=== PATIENT | male | born 1955 | race Caucasian/White ===

== ENCOUNTER 2018-08-13 21:17 | Inpatient (IN) | payer OTHER ==
[~2018-08-13] VITALS: Ht 172.7 cm; Wt 84.6 kg
[2018-08-13 21:54] VITALS: Ht 172.7 cm; Wt 84.6 kg
[2018-08-13 22:56] LABS: BASOPHIL % 1.1 % (0-2); PLATELET COUNT 298 x10^3mcL (130-400); RED CELL DISTRIBUTION WIDTH 13.5 % (11.5-14.5)
[2018-08-13 23:08] LABS: CARBON DIOXIDE 24.1 mmol/L (21-32); CHLORIDE SERUM 101 mmol/L (98-107); GFR1 > 60 mL/min; GLUCOSE SERUM 167 mg/dL (74-106); POTASSIUM SERUM 4.1 mmol/L (3.5-5.1); SODIUM SERUM 133 mmol/L (136-145)
[2018-08-13 23:13] LABS: ALBUMIN 3.5 g/dL (3.4-5.0); ALKALINE PHOSPHATASE 81 U/L (46-116); ALT/SGPT 26 U/L (16-63); AST/SGOT 18 U/L (15-37); BILIRUBIN TOTAL 0.4 mg/dL (0.20-1.00); C REACTIVE PROTEIN 5.1 mg/dL (<=0.9)
[2018-08-13 23:42] LABS: ERYTHROCYTE SED RATE 64 mm/hr (0-20)
[2018-08-14 00:52] LABS: MAGNESIUM 1.8 mg/dL (1.8-2.4); PHOSPHOROUS 2.8 mg/dL (2.5-4.9)
[2018-08-14 02:38] VITALS: BP 143/68
[2018-08-14 05:30] VITALS: BP 137/68
[2018-08-14 06:59] LABS: CALCIUM 7.8 mg/dL (8.5-10.1); CARBON DIOXIDE 25.3 mmol/L (21-32); CHLORIDE SERUM 107 mmol/L (98-107); CREATININE SERUM 0.9 mg/dL (0.7-1.3); GFR1 > 60 mL/min; GLUCOSE SERUM 95 mg/dL (74-106); POTASSIUM SERUM 4.1 mmol/L (3.5-5.1); SODIUM SERUM 140 mmol/L (136-145)
[2018-08-14 07:43] LABS: BASOPHIL % 0.2 % (0-2); PLATELET COUNT 244 x10^3mcL (130-400); RED CELL DISTRIBUTION WIDTH 13.2 % (11.5-14.5)
[2018-08-14 09:32] VITALS: BP 120/60
[2018-08-14 10:12] LABS: microscopic required? NO
[2018-08-14 10:21] LABS: urine erythrocyte NEGATIVE (NEGATIVE)
[2018-08-14 11:48] LABS: AMPHETAMINE QUAL UR NONE DETECTED (See below)
[2018-08-14 16:59] VITALS: BP 120/64
[2018-08-14 20:56] VITALS: BP 129/60
[2018-08-15 06:28] VITALS: BP 133/64
[2018-08-15 08:03] LABS: CALCIUM 8.8 mg/dL (8.5-10.1); CARBON DIOXIDE 26.4 mmol/L (21-32); CHLORIDE SERUM 104 mmol/L (98-107); CREATININE SERUM 0.9 mg/dL (0.7-1.3); GFR1 > 60 mL/min; GLUCOSE SERUM 93 mg/dL (74-106); PHOSPHOROUS 2.7 mg/dL (2.5-4.9); SODIUM SERUM 138 mmol/L (136-145)
[2018-08-15 08:18] LABS: BASOPHIL % 0.4 % (0-2); PLATELET COUNT 251 x10^3mcL (130-400); RED CELL DISTRIBUTION WIDTH 13.4 % (11.5-14.5)
[2018-08-15 09:04] VITALS: BP 143/60
[2018-08-15 16:47] VITALS: BP 168/64
[2018-08-15 17:57] VITALS: BP 154/78
[2018-08-15 20:56] VITALS: BP 122/55
[2018-08-16 05:48] VITALS: BP 136/64
[2018-08-16 06:12] LABS: BASOPHIL % 0.3 % (0-2); PLATELET COUNT 242 x10^3mcL (130-400); RED CELL DISTRIBUTION WIDTH 13.3 % (11.5-14.5)
[2018-08-16 06:31] LABS: CALCIUM 8.8 mg/dL (8.5-10.1); CARBON DIOXIDE 24.5 mmol/L (21-32); CHLORIDE SERUM 105 mmol/L (98-107); CREATININE SERUM 0.9 mg/dL (0.7-1.3); GFR1 > 60 mL/min; GLUCOSE SERUM 95 mg/dL (74-106); POTASSIUM SERUM 3.9 mmol/L (3.5-5.1); SODIUM SERUM 139 mmol/L (136-145)
[2018-08-16 07:55] VITALS: BP 149/76
[2018-08-16 10:14] LABS: CHOLESTEROL/HDL RATIO 3.9
[2018-08-16 17:36] VITALS: BP 118/79
[2018-08-16 21:10] VITALS: BP 110/49
[2018-08-17 05:01] VITALS: BP 141/59
[2018-08-17 06:53] LABS: BASOPHIL % 0.8 % (0-2); PLATELET COUNT 244 x10^3mcL (130-400); RED CELL DISTRIBUTION WIDTH 13.3 % (11.5-14.5)
[2018-08-17 07:01] LABS: CALCIUM 8.7 mg/dL (8.5-10.1); CARBON DIOXIDE 28.4 mmol/L (21-32); CHLORIDE SERUM 106 mmol/L (98-107); CREATININE SERUM 0.9 mg/dL (0.7-1.3); GFR1 > 60 mL/min; GLUCOSE SERUM 91 mg/dL (74-106); MAGNESIUM 1.7 mg/dL (1.8-2.4); PHOSPHOROUS 3.3 mg/dL (2.5-4.9); POTASSIUM SERUM 4.1 mmol/L (3.5-5.1); SODIUM SERUM 140 mmol/L (136-145)
[2018-08-17 09:51] VITALS: BP 143/75
[2018-08-17 17:30] VITALS: BP 140/534
[2018-08-17 21:10] VITALS: BP 145/81
[2018-08-18 05:21] VITALS: BP 130/70
[2018-08-18 07:11] LABS: CALCIUM 8.5 mg/dL (8.5-10.1); CHLORIDE SERUM 105 mmol/L (98-107); CREATININE SERUM 0.8 mg/dL (0.7-1.3); GFR1 > 60 mL/min; GLUCOSE SERUM 93 mg/dL (74-106); POTASSIUM SERUM 3.7 mmol/L (3.5-5.1); SODIUM SERUM 141 mmol/L (136-145)
[2018-08-18 07:34] LABS: BASOPHIL % 0.5 % (0-2); PLATELET COUNT 233 x10^3mcL (130-400); RED CELL DISTRIBUTION WIDTH 13.4 % (11.5-14.5)
[2018-08-18 09:33] VITALS: BP 142/56
[2018-08-18 17:05] VITALS: BP 116/77
[2018-08-18 21:35] VITALS: BP 164/74
[2018-08-18 22:30] VITALS: BP 148/62
[2018-08-19 05:36] VITALS: BP 144/63
[2018-08-19 06:53] LABS: BASOPHIL % 0.3 % (0-2); PLATELET COUNT 222 x10^3mcL (130-400); RED CELL DISTRIBUTION WIDTH 13.5 % (11.5-14.5)
[2018-08-19 07:04] LABS: CALCIUM 8.6 mg/dL (8.5-10.1); CARBON DIOXIDE 26.5 mmol/L (21-32); CHLORIDE SERUM 105 mmol/L (98-107); CREATININE SERUM 0.8 mg/dL (0.7-1.3); GFR1 > 60 mL/min; GLUCOSE SERUM 99 mg/dL (74-106); PHOSPHOROUS 3.4 mg/dL (2.5-4.9); POTASSIUM SERUM 3.8 mmol/L (3.5-5.1); SODIUM SERUM 140 mmol/L (136-145)
[2018-08-19 09:53] VITALS: BP 130/61
[2018-08-19 16:33] VITALS: BP 168/75
[2018-08-19 18:09] VITALS: BP 130/71
[2018-08-19 21:06] VITALS: BP 128/60
[2018-08-20 06:05] VITALS: BP 142/70
[2018-08-20 06:55] LABS: BASOPHIL % 0.5 % (0-2); PLATELET COUNT 246 x10^3mcL (130-400); RED CELL DISTRIBUTION WIDTH 12.2 % (11.5-14.5)
[2018-08-20 06:59] LABS: CALCIUM 8.8 mg/dL (8.5-10.1); CARBON DIOXIDE 25.8 mmol/L (21-32); CHLORIDE SERUM 104 mmol/L (98-107); CREATININE SERUM 0.8 mg/dL (0.7-1.3); GFR1 > 60 mL/min; GLUCOSE SERUM 97 mg/dL (74-106); POTASSIUM SERUM 3.8 mmol/L (3.5-5.1); SODIUM SERUM 140 mmol/L (136-145)
[2018-08-20 09:20] VITALS: BP 136/69
[2018-08-20 16:31] VITALS: BP 125/76
[2018-08-20 22:10] VITALS: BP 120/75
[2018-08-21 05:42] VITALS: BP 157/57
[2018-08-21 06:28] LABS: BASOPHIL % 0.7 % (0-2); PLATELET COUNT 246 x10^3mcL (130-400); RED CELL DISTRIBUTION WIDTH 12.5 % (11.5-14.5)
[2018-08-21 06:53] LABS: CALCIUM 8.8 mg/dL (8.5-10.1); CARBON DIOXIDE 24.4 mmol/L (21-32); CHLORIDE SERUM 100 mmol/L (98-107); CREATININE SERUM 0.8 mg/dL (0.7-1.3); GFR1 > 60 mL/min; GLUCOSE SERUM 93 mg/dL (74-106); POTASSIUM SERUM 3.7 mmol/L (3.5-5.1); SODIUM SERUM 133 mmol/L (136-145)
[2018-08-21 21:20] VITALS: BP 139/73
[2018-08-22 05:48] VITALS: BP 135/80
[2018-08-22 07:36] LABS: CALCIUM 8.6 mg/dL (8.5-10.1); CARBON DIOXIDE 24.9 mmol/L (21-32); CHLORIDE SERUM 102 mmol/L (98-107); CREATININE SERUM 0.8 mg/dL (0.7-1.3); GFR1 > 60 mL/min; GLUCOSE SERUM 111 mg/dL (74-106); POTASSIUM SERUM 3.7 mmol/L (3.5-5.1); SODIUM SERUM 138 mmol/L (136-145)
[2018-08-22 08:36] LABS: BASOPHIL % 0.4 % (0-2); PLATELET COUNT 151 x10^3mcL (130-400); RED CELL DISTRIBUTION WIDTH 12.6 % (11.5-14.5)
[2018-08-22 09:48] VITALS: BP 134/69
[2018-08-22] MEDS ORDERED: LAC PO (16:16)
[2018-08-22] MEDS ORDERED: LEVOFLOXACIN750 M1 PO (16:17)
[2018-08-22] MEDS ORDERED: CLINDAMYCIN HC300 MG PO (16:18)
[2018-08-22] MEDS ORDERED: ACETAMINOPHEN-H1 TA1 PO (16:21)
[2018-08-22 18:17] VITALS: BP 125/70
[2018-08-22] MEDS ORDERED: ASPIR 8181 MG PO (19:12)
[2018-08-22] MEDS ORDERED: PLA75 PO (19:24)
== END 2018-08-22 19:41 | disposition home or self-care (01) | DRG 710 ==
LOC: ED 21:17 → MU 08-14 00:29
PROVIDERS: Emergency Medicine; Internal Medicine; Surgery; ADMIT General Practice
PROC: B41D1ZZ Fluoroscopy of Aorta and Bilateral Lower Extremity Arteries using Low Osmolar Contrast (ICD-10-PCS; principal; 2018-08-16 13:00)
PROC: 03150J8 Bypass Right Axillary Artery to Bilateral Upper Leg Artery with Synthetic Substitute, Open Approach (ICD-10-PCS; 2018-08-21)
DX: A41.9 Sepsis, unspecified organism (principal); I96 Gangrene, not elsewhere classified; E11.621 Type 2 diabetes mellitus with foot ulcer; E87.1 Hypo-osmolality and hyponatremia; L03.115 Cellulitis of right lower limb; L97.519 Non-pressure chronic ulcer of other part of right foot with unspecified severity; E11.52 Type 2 diabetes mellitus with diabetic peripheral angiopathy with gangrene; I87.2 Venous insufficiency (chronic) (peripheral); I10 Essential (primary) hypertension; K21.9 Gastro-esophageal reflux disease without esophagitis; F17.210 Nicotine dependence, cigarettes, uncomplicated; M21.612 Bunion of left foot; M21.611 Bunion of right foot; Z79.84 Long term (current) use of oral hypoglycemic drugs
CPT/HCPCS: 82962; 83880; C1760; C1769; C1887; C1894; J0690; J1170; J1200; J1644; J1885; J2001; J2250; J2270; J2543; J3010; J3370; J3490; J7030; J7040; Q0092; Q9967

== ENCOUNTER 2018-10-06 20:08 | Emergency (ER) | payer OTHER ==
[~2018-10-06] VITALS: Ht 172.7 cm; Wt 83.0 kg
[~2018-10-06 20:08] MED LIST: ACETAMINOPHEN-H1 TA1 PO; ASPIR 8181 MG PO; CLINDAMYCIN HC300 MG PO; LAC PO; LEVOFLOXACIN750 M1 PO; PLA75 PO
[2018-10-06 21:17] VITALS: Ht 172.7 cm; Wt 83.0 kg
[2018-10-06 22:34] VITALS: BP 145/90
== END 2018-10-06 22:34 | disposition home or self-care (01) ==
LOC: ED 20:08
DX: I96 Gangrene, not elsewhere classified (principal); G89.29 Other chronic pain; M79.674 Pain in right toe(s)

== ENCOUNTER 2018-10-13 15:47 | Inpatient (IN) | payer OTHER ==
[~2018-10-13] VITALS: Ht 170.2 cm; Wt 80.0 kg
[2018-10-13 16:12] VITALS: Ht 170.2 cm; Wt 80.0 kg
[2018-10-13 19:09] LABS: BASOPHIL % 0.4 % (0-2); PLATELET COUNT 158 x10^3mcL (130-400); RED CELL DISTRIBUTION WIDTH 13.8 % (11.5-14.5)
[2018-10-13 19:23] LABS: CALCIUM 9.2 mg/dL (8.5-10.1); CARBON DIOXIDE 29.4 mmol/L (21-32); CHLORIDE SERUM 100 mmol/L (98-107); CREATININE SERUM 0.7 mg/dL (0.7-1.3); GFR1 > 60 mL/min; GLUCOSE SERUM 107 mg/dL (74-106); POTASSIUM SERUM 3.9 mmol/L (3.5-5.1); SODIUM SERUM 138 mmol/L (136-145)
[2018-10-13 19:27] LABS: ALBUMIN 4.2 g/dL (3.4-5.0); ALKALINE PHOSPHATASE 86 U/L (46-116); ALT/SGPT 35 U/L (16-63); AST/SGOT 20 U/L (15-37); BILIRUBIN TOTAL 0.6 mg/dL (0.20-1.00)
[2018-10-13 19:56] LABS: ERYTHROCYTE SED RATE 45 mm/hr (0-20)
[2018-10-13 20:49] LABS: microscopic required? NO
[2018-10-13 20:58] LABS: UA SPECIFIC GRAVITY >=1.030 (1.005-1.035); urine erythrocyte NEGATIVE (NEGATIVE)
[2018-10-13 21:23] LABS: CHOLESTEROL/HDL RATIO 4.3; MAGNESIUM 2.1 mg/dL (1.8-2.4); PHOSPHOROUS 3.8 mg/dL (2.5-4.9)
[2018-10-13 21:31] LABS: FREE T4 1.14 ng/dL (0.76-1.46); FREE THYROXINE INDEX 3.6 ug/dL (1.4-4.5); T4(THYROXINE) 11.1 ug/dL (4.7-13.3)
[2018-10-13 21:32] LABS: T3 TOTAL 1.61 ng/mL
[2018-10-13 21:50] VITALS: BP 142/74
[2018-10-14 05:53] VITALS: BP 124/67
[2018-10-14 08:13] VITALS: BP 127/70
[2018-10-14 12:16] VITALS: BP 126/67
[2018-10-14 16:43] VITALS: BP 110/59; BP 140/69
[2018-10-14 20:14] VITALS: BP 130/64
[2018-10-15 05:00] VITALS: BP 114/70
[2018-10-15 07:47] VITALS: BP 123/66
[2018-10-15 11:50] VITALS: BP 138/71
[2018-10-15 16:40] VITALS: BP 155/72
[2018-10-15 19:55] VITALS: BP 142/69
[2018-10-16 04:10] VITALS: BP 142/69
[2018-10-16 06:46] LABS: BASOPHIL % 0.5 % (0-2); PLATELET COUNT 169 x10^3mcL (130-400); RED CELL DISTRIBUTION WIDTH 13.7 % (11.5-14.5)
[2018-10-16 07:22] LABS: CALCIUM 8.2 mg/dL (8.5-10.1); CARBON DIOXIDE 27.7 mmol/L (21-32); CHLORIDE SERUM 106 mmol/L (98-107); CREATININE SERUM 0.6 mg/dL (0.7-1.3); GFR1 > 60 mL/min; GLUCOSE SERUM 94 mg/dL (74-106); POTASSIUM SERUM 3.9 mmol/L (3.5-5.1); SODIUM SERUM 140 mmol/L (136-145)
[2018-10-16 09:10] VITALS: BP 139/69
[2018-10-16 12:34] VITALS: BP 145/80
[2018-10-16 17:35] VITALS: BP 137/75
[2018-10-16 21:10] VITALS: BP 144/75
[2018-10-17 05:42] VITALS: BP 132/69
[2018-10-17 07:43] VITALS: BP 136/86
[2018-10-17 17:45] VITALS: BP 154/85
[2018-10-17 21:07] VITALS: BP 137/85
[2018-10-18 05:56] VITALS: BP 146/63
[2018-10-18 06:36] LABS: CALCIUM 8.6 mg/dL (8.5-10.1); CARBON DIOXIDE 28.9 mmol/L (21-32); CHLORIDE SERUM 106 mmol/L (98-107); CREATININE SERUM 0.7 mg/dL (0.7-1.3); GFR1 > 60 mL/min; GLUCOSE SERUM 92 mg/dL (74-106); POTASSIUM SERUM 4.3 mmol/L (3.5-5.1); SODIUM SERUM 142 mmol/L (136-145)
[2018-10-18 07:58] VITALS: BP 126/71
[2018-10-18 08:18] LABS: BASOPHIL % 0.4 % (0-2); PLATELET COUNT 176 x10^3mcL (130-400); RED CELL DISTRIBUTION WIDTH 13.4 % (11.5-14.5)
[2018-10-18 12:10] VITALS: BP 131/66
[2018-10-18 16:38] VITALS: BP 153/69; BP 168/85
[2018-10-18 21:40] VITALS: BP 135/65
[2018-10-19 05:33] VITALS: BP 129/57
[2018-10-19 06:28] LABS: BASOPHIL % 0.6 % (0-2); PLATELET COUNT 174 x10^3mcL (130-400); RED CELL DISTRIBUTION WIDTH 13.4 % (11.5-14.5)
[2018-10-19 06:37] LABS: CALCIUM 8.2 mg/dL (8.5-10.1); CARBON DIOXIDE 26.6 mmol/L (21-32); CHLORIDE SERUM 107 mmol/L (98-107); CREATININE SERUM 0.7 mg/dL (0.7-1.3); GFR1 > 60 mL/min; GLUCOSE SERUM 85 mg/dL (74-106); SODIUM SERUM 141 mmol/L (136-145)
[2018-10-19 08:47] VITALS: BP 138/69
[2018-10-19 12:02] VITALS: BP 139/79
[2018-10-19 17:16] VITALS: BP 140/71
[2018-10-19 21:59] VITALS: BP 152/70
[2018-10-20 05:51] VITALS: BP 123/69
[2018-10-20 07:29] LABS: CALCIUM 8.1 mg/dL (8.5-10.1); CARBON DIOXIDE 26.9 mmol/L (21-32); CHLORIDE SERUM 107 mmol/L (98-107); CREATININE SERUM 0.7 mg/dL (0.7-1.3); GFR1 > 60 mL/min; GLUCOSE SERUM 85 mg/dL (74-106); POTASSIUM SERUM 3.9 mmol/L (3.5-5.1); SODIUM SERUM 142 mmol/L (136-145)
[2018-10-20 07:41] LABS: BASOPHIL % 0.5 % (0-2); PLATELET COUNT 187 x10^3mcL (130-400); RED CELL DISTRIBUTION WIDTH 13.6 % (11.5-14.5)
[2018-10-20 11:01] VITALS: BP 135/76
[2018-10-20 14:08] VITALS: BP 157/78
[2018-10-20 18:07] VITALS: BP 134/65
[2018-10-20 22:10] VITALS: BP 124/51
[2018-10-21 05:29] VITALS: BP 124/57
[2018-10-21 07:04] LABS: CALCIUM 8.1 mg/dL (8.5-10.1); CHLORIDE SERUM 105 mmol/L (98-107); CREATININE SERUM 0.7 mg/dL (0.7-1.3); GFR1 > 60 mL/min; GLUCOSE SERUM 89 mg/dL (74-106); SODIUM SERUM 140 mmol/L (136-145)
[2018-10-21 07:13] LABS: BASOPHIL % 0.5 % (0-2); PLATELET COUNT 201 x10^3mcL (130-400); RED CELL DISTRIBUTION WIDTH 13.1 % (11.5-14.5)
[2018-10-21 08:25] VITALS: BP 122/57
[2018-10-21 16:45] VITALS: BP 139/62
[2018-10-21 21:14] VITALS: BP 140/68
[2018-10-22 05:34] VITALS: BP 146/71
[2018-10-22 06:49] LABS: CALCIUM 8.1 mg/dL (8.5-10.1); CARBON DIOXIDE 26.7 mmol/L (21-32); CHLORIDE SERUM 107 mmol/L (98-107); CREATININE SERUM 0.7 mg/dL (0.7-1.3); GFR1 > 60 mL/min; GLUCOSE SERUM 93 mg/dL (74-106); SODIUM SERUM 140 mmol/L (136-145)
[2018-10-22 07:15] LABS: BASOPHIL % 0.5 % (0-2); PLATELET COUNT 201 x10^3mcL (130-400); RED CELL DISTRIBUTION WIDTH 13.3 % (11.5-14.5)
[2018-10-22 09:24] VITALS: BP 129/72; BP 162/90
[2018-10-22 17:04] VITALS: BP 140/68
[2018-10-22 20:49] VITALS: BP 136/65
[2018-10-23 05:35] VITALS: BP 145/70
[2018-10-23 06:52] LABS: BASOPHIL % 0.5 % (0-2); PLATELET COUNT 210 x10^3mcL (130-400); RED CELL DISTRIBUTION WIDTH 13.5 % (11.5-14.5)
[2018-10-23 07:07] LABS: CALCIUM 8.2 mg/dL (8.5-10.1); CARBON DIOXIDE 26.4 mmol/L (21-32); CHLORIDE SERUM 108 mmol/L (98-107); CREATININE SERUM 0.7 mg/dL (0.7-1.3); GFR1 > 60 mL/min; GLUCOSE SERUM 88 mg/dL (74-106); MAGNESIUM 1.8 mg/dL (1.8-2.4); PHOSPHOROUS 3.1 mg/dL (2.5-4.9); POTASSIUM SERUM 3.9 mmol/L (3.5-5.1); SODIUM SERUM 140 mmol/L (136-145)
[2018-10-23 08:00] VITALS: BP 142/78
[2018-10-23 10:40] VITALS: BP 129/71
[2018-10-23 11:56] VITALS: BP 141/74
[2018-10-23 16:38] VITALS: BP 140/70
[2018-10-23 20:18] VITALS: BP 138/62
[2018-10-24 04:28] VITALS: BP 124/62
[2018-10-24 07:19] LABS: CALCIUM 8.1 mg/dL (8.5-10.1); CARBON DIOXIDE 25.8 mmol/L (21-32); CHLORIDE SERUM 108 mmol/L (98-107); CREATININE SERUM 0.7 mg/dL (0.7-1.3); GFR1 > 60 mL/min; GLUCOSE SERUM 103 mg/dL (74-106); POTASSIUM SERUM 4.2 mmol/L (3.5-5.1); SODIUM SERUM 141 mmol/L (136-145)
[2018-10-24 07:23] LABS: BASOPHIL % 0.2 % (0-2); PLATELET COUNT 231 x10^3mcL (130-400); RED CELL DISTRIBUTION WIDTH 13.6 % (11.5-14.5)
[2018-10-24 09:25] VITALS: BP 124/59
[2018-10-24 18:25] VITALS: BP 133/67
[2018-10-24 20:10] VITALS: BP 130/58
[2018-10-25 05:04] VITALS: BP 142/64
[2018-10-25 06:38] LABS: BASOPHIL % 0.7 % (0-2); PLATELET COUNT 229 x10^3mcL (130-400); RED CELL DISTRIBUTION WIDTH 13.5 % (11.5-14.5)
[2018-10-25 06:40] LABS: CALCIUM 8.1 mg/dL (8.5-10.1); CARBON DIOXIDE 26.9 mmol/L (21-32); CHLORIDE SERUM 107 mmol/L (98-107); CREATININE SERUM 0.7 mg/dL (0.7-1.3); GFR1 > 60 mL/min; GLUCOSE SERUM 82 mg/dL (74-106); SODIUM SERUM 142 mmol/L (136-145)
[2018-10-25 07:30] VITALS: BP 148/73
[2018-10-25] MEDS ORDERED: IBUPROFEN400 MG PO (08:56)
[2018-10-25 10:15] VITALS: BP 148/73
[2018-10-25 10:28] VITALS: BP 148/73
[2018-10-25 12:03] VITALS: BP 148/73
[2018-10-25 12:09] VITALS: BP 148/73
== END 2018-10-25 13:27 | disposition home or self-care (01) | DRG 181 ==
LOC: ED 15:47 → DU 20:42 → MU 20:42 → DU 21:37 → MU 10-16 10:04
PROVIDERS: Emergency Medicine; General Practice; Surgery; ADMIT Internal Medicine
PROC: 041K0JL Bypass Right Femoral Artery to Popliteal Artery with Synthetic Substitute, Open Approach (ICD-10-PCS; principal; 2018-10-20 11:00)
PROC: 0Y6P0Z0 Detachment at Right 1st Toe, Complete, Open Approach (ICD-10-PCS; 2018-10-23)
DX: E11.52 Type 2 diabetes mellitus with diabetic peripheral angiopathy with gangrene (principal); I70.263 Atherosclerosis of native arteries of extremities with gangrene, bilateral legs; L03.115 Cellulitis of right lower limb; Z79.82 Long term (current) use of aspirin; Z68.27 Body mass index [BMI] 27.0-27.9, adult; Z87.891 Personal history of nicotine dependence; Z79.84 Long term (current) use of oral hypoglycemic drugs
CPT/HCPCS: 82962; 83880; 84439; C1768; J1170; J1644; J1885; J2001; J2175; J2250; J2270; J2543; J3010; J3370; J3490; J7030; J7050; Q0092

== ENCOUNTER 2018-12-19 22:18 | Inpatient (IN) | payer OTHER ==
[~2018-12-19] VITALS: Ht 172.7 cm; Wt 82.7 kg
[~2018-12-19 22:18] MED LIST changes: +IBUPROFEN400 MG PO
[2018-12-19 22:19] VITALS: Ht 172.7 cm; Wt 82.7 kg
--- NOTE | 2018-12-19 23:35 | NUR ---
PT C/O RIGHT FOOT PAIN X1 MONTH PER PT RIGHT 1ST TOE AMPUTATED X1 MONTH AGO D/T "INFECTION" PT STS THE "INFECTION STARTED IN [place]UL[place] BUT GOT WORSE BECAUSE I HAD A BLOOD CLOT THEY HAD TO REMOVE BUT THE WHOLE FOOT HURTS NOW" PT DENIES HX DM PT WAS AMBULATORY WITH STEADY GAIT USING CRUTCHES TO PT AAOX4 RESPS E/U PITTING EDEMA NOTED TO RIGHT FOOT +PMSC TO ALL EXTREMITIES RIGHT 1ST TOE AMPUTATION NOTED PT AWAITING MSE
--- NOTE | 2018-12-19 23:35 | NUR ---
PT STS HX SMOKING AND CURRENTLY A SMOKER
[2018-12-20 00:24] LABS: BASOPHIL % 0.5 % (0-2); PLATELET COUNT 331 x10^3mcL (130-400); RED CELL DISTRIBUTION WIDTH 13.4 % (11.5-14.5)
[2018-12-20 00:26] LABS: CALCIUM 9.1 mg/dL (8.5-10.1); CARBON DIOXIDE 27.1 mmol/L (21-32); CHLORIDE SERUM 104 mmol/L (98-107); CREATININE SERUM 0.8 mg/dL (0.7-1.3); GFR1 > 60 mL/min; GLUCOSE SERUM 112 mg/dL (74-106); SODIUM SERUM 142 mmol/L (136-145)
--- NOTE | 2018-12-20 00:26 | NUR ---
PT MEDICATED PER EMAR, RESTING IN A POSITION OF COMFORT WITH NO ACUTE DISTRESS NOTED AT THIS TIME. PT AOX4, RESP EVEN AND UNLABORED. AT BEDSIDE.
[2018-12-20 00:31] LABS: ALBUMIN 3.9 g/dL (3.4-5.0); ALKALINE PHOSPHATASE 84 U/L (46-116); ALT/SGPT 32 U/L (16-63); AST/SGOT 13 U/L (15-37); BILIRUBIN TOTAL 0.5 mg/dL (0.20-1.00)
--- NOTE | 2018-12-20 00:33 | NUR ---
PT OFF FLOOR FOR ULTRASOUND, FLUIDS PAUSED AT THIS TIME.
[2018-12-20 00:35] LABS: TOTAL PROTEIN, SERUM 8.4 g/dL (6.4-8.2)
--- NOTE | 2018-12-20 01:24 | NUR ---
HEPARIN DRIP STARTED PT IN POSITION OF COMFORT RESPS E/U AT BEDSIDE
--- NOTE | 2018-12-20 02:26 | NUR ---
PT ASLEEP IN POSITION OF COMFORT RESPS E/U CALL LIGHT WITHIN REACH
--- NOTE | 2018-12-20 03:13 | NUR ---
PT IN POSITION OF COMFORT RESPS E/U WARM BLANKET AND SOCKS PROVIDED PER PT REQUEST AND COMFORT PT C/O 01/31 RIGHT FOOT PAIN MD MATTHEWS MADE AWARE
--- NOTE | 2018-12-20 04:29 | NUR ---
PT ASLEEP BUT AROUSABLE IN POSITION OF COMFORT RESPS E/U WILL CONTINUE TO MONITOR
[2018-12-20 05:42] LABS: CHOLESTEROL/HDL RATIO 4.8; PHOSPHOROUS 3.1 mg/dL (2.5-4.9)
--- NOTE | 2018-12-20 06:00 | NUR ---
RECEIVED PT FROM ED VIA BAY ACCOMPANIED BY RN.PT CAME HERE DUE TO RIGHT FT PAIN X2 DAYS.AAOX4 AND USES CRUTCHES FOR AMBULATION.ABLE TO FOLLOW COMMANDS.ABDOMEN SOFT AND ROUND.NOTICED RIGHT BIG TOE AMPUTATION,SLIGHT ERYTHEMA AND EDEMA TO RIGHT FT.HEPARIN STILL INFUSING @ 1500 UNITS/HR,NEXT PTT @ 0600.IV SITE PATENT AND INTACT.PT DENIES ANY PAIN AT THIS TIME. BE DIN LOWEST POSITION,CALL LIGHT WITHIN REACH. WILL CONTINUE TO MONITOR.
[2018-12-20 06:04] VITALS: BP 144/75
--- NOTE | 2018-12-20 07:29 | NUR ---
CARE ENDORSED TO DAY NURSE
--- NOTE | 2018-12-20 08:00 | NUR ---
SHIFT ASSESSMENT DONE. PATIENT ALERT/ORIENTED X4. CLEAR SPEECH. TELE#28; SR; HR = 67; DENIED CHEST PAIN. NO RESP DISTRESS ON RA. HEPARIN DRIP 1500 UNITS/HR W/ NS 100CC/HR TO RAC. IVHL'D TO L HAND. NO C/O RLE PAIN NOW. RT BIG TOE AMPUTATED. INCISION HEALED. KILN FURNITURE SAW TENDER. RT PEDOL PULSE WEAK, BUT PALPABLE. ABLE TO AMBULATED ON STEADY GAIT. CALL LIGHT IN REACH.
--- NOTE | 2018-12-20 09:28 | NUR ---
LAB REPORTED PTT = 105.3; HEPARIN DRIP DECREASED T0 1300 UNITS/HR PER PROTOCOL. NEXT PTT CHECK AT 1320.
[2018-12-20 09:47] VITALS: BP 128/81
[2018-12-20 13:14] VITALS: BP 135/62
--- NOTE | 2018-12-20 14:40 | NUR ---
PTT RESULT OF 1320 = 65.7. WITHIN THERAPEUTIC RANGE. HEPARIN DRIP RATE NOT CHANGED, CONTINUED ON 1300 UNITS/HR. NEXT PTT AT 1730 PER PROTOCOL.
[2018-12-20 17:41] VITALS: BP 144/57
--- NOTE | 2018-12-20 18:37 | NUR ---
PTT = 69.0; DECREASED HEPARIN DOSE TO 1100 UNITS/HR. NEXT PTT SCHEDULED TO 2230. ENDORSED CARE TO [facility] NURSE.
[2018-12-20 18:44] LABS: microscopic required? NO
[2018-12-20 19:05] LABS: urine erythrocyte NEGATIVE (NEGATIVE)
--- NOTE | 2018-12-20 19:30 | NUR ---
RECEIVED PT RESTING IN BED, NO ACUTE DISTRESS NOTED. PT S/P RT FOOT GREAT TOE AMPUTATION. SITE TARIK, TRACE EDEMA RT FOOT, REPORTS PAIN, WILL MEDICATE PER ORDER. AOX4, DENIES MOHAN/DIZZINESS. TELE #28, SR WE/ PEAKED T WAVE. DENIES CP. RESP EVEN AND UNLABORED ONRA, DENIES SOB. PT VOIDS FREELY W/O DYSURIA. PT AMB W/ CRUTCHES AT BASELINE. IV SITE TO THE [facility] PATENT, HEPARIN GTT @ 1100 UNITS/HR, PER US ART RLE= (+) OCCLUSION. NEXT GONSALO= 2230. LT HAND SALINE LOCKED. NO REDNESS, SWELLING OR PAIN NOTED. ALL COMFORT AND SAFETY MEASURES PROVIDED FOR, CALL LIGHT WITHIN REACH, BED IN LOWEST POSITION, WILL CONTINUE TO MONITOR.
[2018-12-20 20:45] VITALS: BP 147/60
--- NOTE | 2018-12-20 23:00 | NUR ---
RECEIVED A THERAPEUITC PTT OF 48.4, ORDERED ANOTHER PTT 4 HOURS AFTER (02:30AM 12/21/18) IV SITE REMAINS PATENT TO RAC, NO REDNESS, SWELLING OR PAIN NOTED. WILL CONTINUE TO MONITOR.
[2018-12-21] VITALS (7 sets, daily range): BP systolic 131–159; BP diastolic 61–85
--- NOTE | 2018-12-21 05:00 | NUR ---
ADJUSTED PT HEPARIN GTT TO 1300U/HR PER HEPARIN PROTOCOL. LASTEST PTT= 43.8, REBOLUSED PT WITH 3000 UNITS HEPARIN IVP, AND RADHA ZELAYA WITNESSED AN INCREASE OF HEPARIN GTT TO 1300UNITS/HR AFTER A REBOULS OF 3000 UNIT HEPARIN. EXPLAINED THE RISK/BENEFITS OF HEPARIN, ALL QUESTIONS AND CONCERNS ADDRESSED, NEXT PTT ORDERED FOR 0900 12/21/18.
--- NOTE | 2018-12-21 05:10 | NUR ---
PT RESTED IN INTERVALS DURING SHIFT, NO ACUTE CHANGES OCCURRING OVERNIGHT. PT REMAINS ON HEPARIN GTT, CURRENTLY @ 1300U/HR. PT NEXT PTT ORDERED FOR 0900. IV SITE REMAINS PATENT TO RAC WITH HEPARIN GTT INFUSING. PT HAS LT HAND SALINE LOCKED. NO REDNESS, SWELLING OR PAIN NOTED. ALL COMFORT AND SAFETY MEASURES PROVIDED FOR, CALL LIGHT WITHIN REACH, BED IN LOWEST POSITION, WILL CONTINUE TO MONITOR.
[2018-12-21 06:38] LABS: CALCIUM 8.6 mg/dL (8.5-10.1); CARBON DIOXIDE 28.2 mmol/L (21-32); CHLORIDE SERUM 103 mmol/L (98-107); CREATININE SERUM 0.7 mg/dL (0.7-1.3); GFR1 > 60 mL/min; GLUCOSE SERUM 104 mg/dL (74-106); POTASSIUM SERUM 3.8 mmol/L (3.5-5.1); SODIUM SERUM 141 mmol/L (136-145)
[2018-12-21 06:50] LABS: BASOPHIL % 0.5 % (0-2); PLATELET COUNT 268 x10^3mcL (130-400); RED CELL DISTRIBUTION WIDTH 13.5 % (11.5-14.5)
--- NOTE | 2018-12-21 07:47 | NUR ---
ENDORSED ALL CARE TO DAYSHIFT NURSE, ALL QUESTIONS AND CONCERNS ADDRESSED, ALL COMFORT AND SAFETY MEASURES PROVIDED FOR, CALL LIGHT WITHIN REACH, BED IN LOWEST POSITION, WILL CONTINUE TO MONITOR.
--- NOTE | 2018-12-21 08:00 | NUR ---
SHIFT ASSESSMENT DONE. PATIENT A/A/OX4. TELE#28; SR; HR = 67; DENIED CHEST PAIN. NO RESP DISTRESS ON RA. O2 SAT 98% ON RA. C/O RLE PAIN ON 01/01. RT TOE AMPUTATED, HEALING INCISION. NO DRAIANGE NOTED. RT FOOT SLIGHT REDNESS W/ EDEMA. RT PEDOL PULSE WEAK, BUT PALPABLE. AMBULATED W/ CRUTCH. ON HEPARIN DRIP AT 1300 UNITS/HR W/ NS 100CC/HR. IV SITE TO RAC INTACT. IVHL'D TO L HAND, PATENT. TOLERATED CARDIAC DIET BREAKFAST. CALL LIGHT IN REACH.
--- NOTE | 2018-12-21 09:45 | NUR ---
LAB REPORTED PTT = 71.5. DECREASED HEPARIN DOSE TO 1100 UNITS/HR. NEXT PTT CHECK AT 1345 PER PROTOCOL.
[2018-12-21] MEDS ORDERED: HEPARIN 1,1000 UNIT/ IV (10:01)
--- NOTE | 2018-12-21 16:00 | NUR ---
PTT WAS 44.3; INCREASED HEPARIN DOSE TO 1300 UNITS/HR. 3000 UNITS HEPARIN REBOLUS GIVEN. RECHECK PTT AT 1999.
--- NOTE | 2018-12-21 18:20 | NUR ---
TELPHONE REPORTED WITH KELSEY DUNNE, WITH PATIENT'S B/P = 159/78. SHE SAID SHE WOULD REVIEW PATIENT'S DATA. NO NEW ORDER YET.
--- NOTE | 2018-12-21 19:35 | NUR ---
RECEIVED PT RESTING IN BED, NO ACUTE DISTRESS NOTED. PT S/P RT FOOT GREAT TOE AMPUTATION IN OCTOBER. SITE TARIK, TRACE EDEMA RT FOOT, REPORTS PAIN, WILL MEDICATE PER ORDER. AOX4, DENIES MOHAN/DIZZINESS. MEDSURG PT. DENIES CP. RESP EVEN AND UNLABORED ONRA, DENIES SOB. PT VOIDS FREELY W/O DYSURIA. PT AMB W/ CRUTCHES AT BASELINE. IV SITE TO THE [facility] PATENT, HEPARIN GTT @ 1300 UNITS/HR, NEXT PTT @ 1999, WILL MONITOR FOR RESULTS. PER US ART RLE= (+) OCCLUSION. LT HAND SALINE LOCKED. NO REDNESS, SWELLING OR PAIN NOTED. ALL COMFORT AND SAFETY MEASURES PROVIDED FOR, CALL LIGHT WITHIN REACH, BED IN LOWEST POSITION, WILL CONTINUE TO MONITOR.
--- NOTE | 2018-12-21 21:00 | NUR ---
ADJUSTED THE RATE OF HEPARIN GTT D/T LATEST PTT= 68.3, DECREASED RATE BY 2ML/HR, NEW RATE IS NOW 1100 UNITS/HR. EXPLAINED THE RISK/BENEFITS OF HEPARIN INFUSING, ENCOURAGED THE USE OF CALL LIGHT FOR ASSISTANCE TO ENSURE PT SAFETY, EXPLAINED THE LATEST PLAN OF CARE IN REGARDS TO HLOC TXR. ALL QUESTIONS AND CONCERNS ADDRESSED, PT VERBALIZES UNDERSTANDING. ALL COMFORT AND SAFETY MEASURES PROVIDED FOR, CALL LIGHT WITHIN REACH, BED IN LOWEST POSITION, WILL CONTINUE TO MONITOR.
--- NOTE | 2018-12-21 22:41 | NUR ---
SPOKE TO ALLISON HAYNES FROM [facility] , IN REGARDS TO AN AVAILABLE BED THIS EVENING AT [facility]. ACCEPTING CURT BRUMFIELD (VASCULAR SURGEON). ROOM AVAILABLE IS RM #[id number], RM #1, BED #1. REPORT WILL BED CALLED TO # . WILL INFORMED DR. ALMONTE ABOUT TRANSFER WELL POSSIBLE NEED TO [facility] PATIENT D/T PT ON HEPARIN GTT CURRENTLY AT 1100 UNITS/HR. WILL UPDATE PT IN REGARDS TO PLAN OF CARE.
--- NOTE | 2018-12-22 00:12 | NUR ---
GAVE REPORT TO EPIFANIO ZELAYA FROM [facility], ALL QUESTIONS AND CONCERNS ADDRESSED, ENDORSED ALL INTERVENTIONS PERFORMED HERE, PT WILL BE TRANSFERRED WITH HEPARIN GTT INFUSING AT 1100UNITS/HR. ENDORSED THE NEXT PTT WILL BE SCHEDULED FOR 0100, LATEST PTT= 68.3. WILL CONTINUE WITH DISCHARGE.
--- NOTE | 2018-12-22 00:20 | NUR ---
PT TRANSFERRED TO [facility] FOR HIGHER LEVEL OF CARE, ENDORSED ALL CARE TO ACCEPTING NURSE AND SAFETY MEASURES ENDORSED TO TRANSPORTATION TEAM. PT TRANSFERRED WITH HEPARIN INFUSING @ 1100 UNITS/HR. IV SITE PATENT, NO REDNESS, SWELLING OR PAIN NOTED. UPDATED PHOTOGRAPH TAKEN OF RT FOOT, PT MEDICATED WITH NORCO PER ORDER. ENDORSED THE MEDICATION ADMINISTRATION TO THE ACCEPTING NURSE AND THE TRANSPORTATION TEAM. PT CALM AND COOPERATIVE WITH TRANSFER AT THIS TIME.
== END 2018-12-22 00:37 | disposition short-term general hospital (02) | DRG 206 ==
LOC: ED 22:18 → DU 12-20 04:43 → MU 12-21 16:49
PROVIDERS: Emergency Medicine; ADMIT Internal Medicine
DX: T82.392A Other mechanical complication of femoral arterial graft (bypass), initial encounter (principal); E11.51 Type 2 diabetes mellitus with diabetic peripheral angiopathy without gangrene; E78.5 Hyperlipidemia, unspecified; F17.210 Nicotine dependence, cigarettes, uncomplicated; Y83.2 Surgical operation with anastomosis, bypass or graft as the cause of abnormal reaction of the patient, or of later complication, without mention of misadventure at the time of the procedure; Y92.89 Other specified places as the place of occurrence of the external cause
CPT/HCPCS: 83880; 99406; J1644; J2270; J2405; J7030; J7040; Q0092

== ENCOUNTER 2019-01-30 14:37 | Inpatient (IN) | payer OTHER ==
[~2019-01-30] VITALS: Ht 172.7 cm; Wt 74.8 kg
[~2019-01-30 14:37] MED LIST changes: +HEPARIN 1,1000 UNIT/ IV
[2019-01-30 14:44] VITALS: Ht 172.7 cm; Wt 74.8 kg
--- NOTE | 2019-01-30 14:50 | NUR ---
PT PRESENTS TO THE ED TODAY WITH C/C OF SOB. 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 PT HAS A RIGHT 1ST AND 2ND TOE AMPUTATION, 2ND TOE WAS AMPUTATED X1 WEEK AGO. SUTURES IN PLACE, DRIED BLOOD NOTED AROUND SUTURES, NO DRAINAGE, SWELLING BUT NO REDNESS NOTED AROUND TOE AREA. WEAKENED PULSE NOTED TO RIGHT LOWER AND UPPER EXTREMITIES. PT DENIES ANY DECREASED SENSATION OR STRENGTH. STRONG PULSES NOTED TO LEFT UPPER AND LOWER EXTREMITIES. PT HAS A SIGNIFICANT HX OF PERIPHERAL VASCULAR DISEASE. PT IS AWAKE AND ALERT, SPEAKING IN FULL CLEAR SENTENCES, RESP E/U, NAD NOTED.
--- NOTE | 2019-01-30 15:00 | NUR ---
DR SALCIDO AT BEDSIDE FOR MSE.
[2019-01-30 15:24] LABS: BASOPHIL % 0.4 % (0-2); PLATELET COUNT 274 x10^3mcL (130-400); RED CELL DISTRIBUTION WIDTH 14.1 % (11.5-14.5)
[2019-01-30 15:46] LABS: ALBUMIN 3.3 g/dL (3.4-5.0); ALKALINE PHOSPHATASE 79 U/L (46-116); ALT/SGPT 33 U/L (16-63); AST/SGOT 18 U/L (15-37); BILIRUBIN TOTAL 0.4 mg/dL (0.20-1.00); CALCIUM 8.6 mg/dL (8.5-10.1); CARBON DIOXIDE 31.1 mmol/L (21-32); CHLORIDE SERUM 105 mmol/L (98-107); CREATININE SERUM 0.8 mg/dL (0.7-1.3); GFR1 > 60 mL/min; GLUCOSE SERUM 133 mg/dL (74-106); POTASSIUM SERUM 3.8 mmol/L (3.5-5.1); SODIUM SERUM 142 mmol/L (136-145); TOTAL PROTEIN, SERUM 7.6 g/dL (6.4-8.2)
--- NOTE | 2019-01-30 15:46 | NUR ---
PT SITTING IN HIGH DELGADO'S AWAKE AND ALERT, RESP E/U, DENIES ANY PAIN, CALL LIGHT IN REACH. NAD NOTED.
--- NOTE | 2019-01-30 16:10 | NUR ---
IV BOLUS INITIATED PER MD ORDER, PT VERBALIZED UNDERSTANDING OF MEDICATION PRIOR TO ADMINISTRATION.
--- NOTE | 2019-01-30 16:31 | NUR ---
PT TAKEN TO CT VIA WC. DRESSING FELL OFF OF RIGHT FOOT WOUND. PER HARRY BILLINGSLEY TO DRESS TOES AT THIS TIME.
--- NOTE | 2019-01-30 16:55 | NUR ---
PT AWAKE AND ALERT, RESP E/U, DENIES ANY PAIN. SPEAKING IN FULL CLEAR SENTENCES, SPOUSE AT BEDSIDE.
--- NOTE | 2019-01-30 16:55 | NUR ---
PT RETURNED FROM CT, NAD NOTED.
[2019-01-30] MEDS ORDERED: BENAZEPRIL HYDR20 M1 PO (17:23)
[2019-01-30] MEDS ORDERED: ATORVASTATIN CA40 M1 PO (17:23)
[2019-01-30] MEDS ORDERED: METOPROLOL TART25 M1 PO (17:23)
[2019-01-30] MEDS ORDERED: PLA75 PO (17:24)
[2019-01-30] MEDS ORDERED: COLACE100 MG PO (17:24)
[2019-01-30] MEDS ORDERED: GOOD SENSE ASPI81 M3 PO (17:24)
[2019-01-30] MEDS ORDERED: NORCO1 TA2 PO (17:24)
[2019-01-30] MEDS ORDERED: MIRALAX17 GM/Dose PO (17:25)
--- NOTE | 2019-01-30 17:26 | NUR ---
DR SALCIDO SPOKE WITH PT REGARDING ADMISSION. PT AND HIS AGREED WITH PLAN OF CARE.
[2019-01-30 18:56] LABS: MAGNESIUM 1.9 mg/dL (1.8-2.4); PHOSPHOROUS 3.8 mg/dL (2.5-4.9)
--- NOTE | 2019-01-30 19:17 | NUR ---
PT AWAKE AND ALERT, RESP E/U, SPEAKING IN FULL CLEAR SENTENCES TO RESIDENT MD AT BEDSIDE, NAD NOTED.
--- NOTE | 2019-01-30 19:22 | NUR ---
ATTEMPTED TO CALL REPORT TO GLORIA ZELAYA. TOLD THAT GLORIA IS STILL GETTING REPORT AND TO CALL BACK.
--- NOTE | 2019-01-30 19:47 | NUR ---
REPORT CALLED TO GARCIA CASTRO ON TELE TO ASSUME CARE FOR PT.
--- NOTE | 2019-01-30 19:49 | NUR ---
PT TRANSPORTED TO TELE AT THIS TIME BY RN ELYSE AND EMT MANOLO. PT IS AWAKE AND ALERT, RESP E/U, SPEAKING IN CLEAR SENTENCES. NAD NOTED. ACCOMPANIED BY SPOUSE. NAD NOTED UPON LEAVING ED.
--- NOTE | 2019-01-30 20:00 | NUR ---
PATIENT RECEIVED FROM ER VIA [place] DUE TO COMPLAIN OF SUDDEN SOB. PATIENT AWAKE, ALERT, ORIENTED X4. RESPIRATION EVEN AND UNLABORED, ON ROOM AIR. C/O CONSTIPATION, LAST BM 2 DAYS AGO. VOIDING FREELY WITHOUT DIFFICULTY. RT FOOT- 2ND TOE AMPUTATED LAST WEEK, SWOLLEN WITH SUTURES COVERED WITH D/I DRESSING. IV SITE TO RIGHT ANTECUBITAL AREA PATENT AND INTACT. MRSA SWAB DONE. PLACED IN A COMFORTABLE POSITION. DENIES PAIN AT THIS TIME. WILL CONTINUE TO MONITOR.
[2019-01-31 05:41] VITALS: BP 120/67
--- NOTE | 2019-01-31 06:01 | NUR ---
PATIENT RESTING IN BED. RESPIRATION EVEN AND UNLABORED, ON ROOM AIR. DENIES PAIN AT THIS TIME. RIGHT FOOT COVERED WITH DRY/INTACT DRESSING. IV SITE NO SIGN OF INFILTRATION. ASSISTED WITH NEEDS. SAFETY OBSERVED. PLACED BED IN THE LOWEST POSITION. PLACED CALL LIGHT WITHIN REACH AT ALL TIMES.
[2019-01-31 06:31] LABS: CALCIUM 8.7 mg/dL (8.5-10.1); CARBON DIOXIDE 24.6 mmol/L (21-32); CHLORIDE SERUM 107 mmol/L (98-107); CREATININE SERUM 0.7 mg/dL (0.7-1.3); GFR1 > 60 mL/min; GLUCOSE SERUM 151 mg/dL (74-106); POTASSIUM SERUM 4.3 mmol/L (3.5-5.1); SODIUM SERUM 142 mmol/L (136-145)
[2019-01-31 06:51] LABS: BASOPHIL % 0.1 % (0-2); PLATELET COUNT 268 x10^3mcL (130-400); RED CELL DISTRIBUTION WIDTH 14.1 % (11.5-14.5)
--- NOTE | 2019-01-31 07:20 | NUR ---
RECIEVED PT RESTING IN BED WITH NO C/O PAIN, DISTRESS, OR SOB. A/O X4. TELE #6 ON PT. NS RUNNING AT 100ML/HR IN RAC. NO REDNESS, INTACT, AND PATENT. SAFETY PREC IN PLACE, CALL LIGHT WITHIN REACH, WILL MONIOTR.
--- NOTE | 2019-01-31 10:30 | NUR ---
PT STABLE AT THIS TIME WITH NO C/O PAIN, DISTRESS, OR SOB. SAFETY PRECAUTIONS IN PLACE, CALL LIGHT WITHIN REACH, WILL MONITOR.
--- NOTE | 2019-01-31 12:00 | NUR ---
PT STABLE WITH NO C/O PAIN, DISTRESS, OR SOB. CALL LIGHT WITHIN REACH, SAFETY PRECAUTIONS IN PLACE, WILL MONITOR.
[2019-01-31 12:29] LABS: microscopic required? NO
[2019-01-31 12:44] VITALS: BP 112/64
[2019-01-31 12:54] LABS: AMPHETAMINE QUAL UR NONE DETECTED (See below)
[2019-01-31 12:55] LABS: urine erythrocyte NEGATIVE (NEGATIVE)
[2019-01-31 13:56] VITALS: BP 112/64
--- NOTE | 2019-01-31 15:00 | NUR ---
PT STABLE. NO PAIN, DISTRESS, OR SOB. CALL LIGHT WITHIN REACH, WILL MONITOR
[2019-01-31] MEDS ORDERED: PREDNISONE20 MG PO (15:45)
[2019-01-31 17:13] VITALS: BP 127/82
--- NOTE | 2019-01-31 19:44 | NUR ---
PT STABLE AND READY FOR DISCHARGE. ALL DISCHARGE INSTRUCTIONS AND EDUCATION EXPLAINED TO PT AND PT VERBALIZES UNDERSTANDING. IV REMOVED WITH CATHETER INTACT. NO REDNESS OR INFLAMMATION NOTED. HOSPITAL ID BANDS REMOVED. VS WNL, ALL CARES TOLERATED WELL. AT BEDSIDE. PT TO BE ESCORTED BY ANTHROPOLOGICAL LINGUIST VIA WC TO LOBBY. ENDORSED TO NIGHT NURSE.
== END 2019-01-31 20:10 | disposition home or self-care (01) | DRG 133 ==
LOC: ED 14:37 → DU 18:22 → MU 01-31 10:56
PROVIDERS: Emergency Medicine; ADMIT Internal Medicine
DX: J96.01 Acute respiratory failure with hypoxia (principal); E87.3 Alkalosis; E11.51 Type 2 diabetes mellitus with diabetic peripheral angiopathy without gangrene; J44.1 Chronic obstructive pulmonary disease with (acute) exacerbation; I10 Essential (primary) hypertension; E78.5 Hyperlipidemia, unspecified; Z87.891 Personal history of nicotine dependence; Z79.84 Long term (current) use of oral hypoglycemic drugs; Z89.421 Acquired absence of other right toe(s); Z83.3 Family history of diabetes mellitus
CPT/HCPCS: 36600; 83880; 85378; 94150; G0378; J2920; J7030; J7620; Q9967